=== PATIENT | male | born 1950 | race Caucasian/White ===

== ENCOUNTER → 2020-07-02 | Outpatient (CLI) | payer MEDICARE ==
[~2020-07-02] MED LIST: ARNUITY ELLIPTA INH; ASPIR 8181 MG PO; ATENOLOL50 MG PO; Anoro Ellipta INH; CITALOPRAM HBR20 MG PO; DICYCLOMINE HCL10 MG PO; DULERA 200 MCG/13 GM PO; FISH OIL300 MG PO; LISINOPRIL40 MG PO; MERREM1 GM IV; MONTELUKAST SOD10 MG PO; MULTI-VITAMIN1 EACH PO; PROAIR HFA INH8.5 GM INH; VANCOMYCIN1 GM/250 M IV; VITAMIN B-121000 MCG PO; VITAMIN C1000 MG PO
== END ==
LOC: NM 08:20
PROVIDERS: ATTEND Surgery
DX: S81.801A Unspecified open wound, right lower leg, initial encounter (principal)
CPT/HCPCS: 73590; 78315; A9503; A9521; A9570

== ENCOUNTER → 2020-07-29 | Outpatient (CLI) | payer MEDICARE, OTHER ==
[~2020-07-29] MED LIST changes: +BUPIVACAINE 0.25% 30ML SDV ONE; +LIDOCAINE 1% W/EPINEPHRINE 20 ML VIAL ONE
[2020-07-29 09:30] LABS: BASOPHILS # (AUTO) 0.1 (0.0-0.1); BASOPHILS % 1.2 % (0.0-1.0); EOSINOPHILS # (AUTO) 0.6 (0.0-0.4); HEMATOCRIT 47.8 % (38.2-49.6); HEMOGLOBIN 16.4 g/dL (14.0-18.0); LYMPHOCYTES # (AUTO) 2.2 (1.0-3.2); LYMPHOCYTES % 32.4 % (18.0-39.1); MEAN CORPUSCULAR HEMOGLOBIN 31.2 pg (28-32); MEAN CORPUSCULAR HGB CONC 34.3 g/dL (31-35); MEAN CORPUSCULAR VOLUME 90.9 fL (81-99); MONOCYTES # (AUTO) 0.7 (0.2-0.8); MONOCYTES % 9.7 % (4.4-11.3); NEUTROPHILS # (AUTO) 3.3 (2.1-6.9); NEUTROPHILS % 47.4 % (38.7-80.0); PLATELET COUNT 165 x10e3/uL (140-360); RED BLOOD COUNT 5.26 x10e6/uL (4.3-5.7)
[2020-07-29 09:55] LABS: ANION GAP 11.5 mmol/L (8-16); CALCIUM 8.8 mg/dL (8.4-10.2); CARBON DIOXIDE 26 mmol/L (22-29); CHLORIDE 97 mmol/L (98-107); GLUCOSE 136 mg/dL (74-118); POTASSIUM 4.5 mmol/L (3.5-5.1); SODIUM 130 mmol/L (136-145)
[2020-07-29 10:10] LABS: CREATININE, SERUM 0.95 mg/dL (0.72-1.25); EST GLOMERULAR FILTRATION RATE > 60 ML/MIN (60-)
[2020-07-29 10:13] LABS: BLOOD UREA NITROGEN < 5 mg/dL (7-26); BUN/CREATININE RATIO 5 (6-25)
== END ==
LOC: RAD 21:33 → OR 07-31 07:08 → EDSTATUS 07-31 10:00
PROVIDERS: ATTEND Surgery
DX: T81.89XA Other complications of procedures, not elsewhere classified, initial encounter (principal); Y84.9 Medical procedure, unspecified as the cause of abnormal reaction of the patient, or of later complication, without mention of misadventure at the time of the procedure; Z53.8 Procedure and treatment not carried out for other reasons; Z01.810 Encounter for preprocedural cardiovascular examination; Z01.812 Encounter for preprocedural laboratory examination; Z01.818 Encounter for other preprocedural examination; Z20.822 Contact with and (suspected) exposure to COVID-19
CPT/HCPCS: 36415; 71046; 80048; 85025; 93005; U0002

== ENCOUNTER → 2020-08-12 | Day surgery (SDC) | payer MEDICARE ==
[~2020-08-12] MED LIST changes: +CEFTRIAXONE SOD 1 GM VIAL ONE; +DEXAMETHASONE SOD PHOS INJ 4 MG/ML VIAL ONE; +EPHEDRINE SULFATE INJ 50 MG/ML VIAL ONE; +FENTANYL CITRATE/PF 100MCG/2 ML INJ ONE; -LIDOCAINE 1% W/EPINEPHRINE 20 ML VIAL ONE; +LIDOCAINE HCL 2% LOCAL INJ 5 ML SDV VIAL INJ ONE; +ONDANSETRON HCL INJ 2MG/ML 2ML 2 MG/ML VIAL ONE; +PROPOFOL IV EMULSION 10 MG/ML 20 ML VIAL ONE; +SEVOFLURANE INHAL SOLN 250 ML PEN BTL ONE
[2020-08-12 12:39] VITALS: BP 109/63
== END | disposition home or self-care (01) ==
LOC: OR 06:53
PROVIDERS: ATTEND Surgery
DX: S81.801A Unspecified open wound, right lower leg, initial encounter (principal); I10 Essential (primary) hypertension; I44.0 Atrioventricular block, first degree; X58.XXXA Exposure to other specified factors, initial encounter; Z01.812 Encounter for preprocedural laboratory examination; Z20.822 Contact with and (suspected) exposure to COVID-19; Z90.5 Acquired absence of kidney
CPT/HCPCS: 15738; J0696; J1100; J2001; J2405; J2704; J3010; U0002

== ENCOUNTER 2025-02-05 07:45 | Inpatient (IN) | payer MEDICARE ==
[~2025-02-05] VITALS: Ht 167.6 cm; Wt 63.5 kg
[2025-02-05] VITALS (8 sets, daily range): BP systolic 104–150; BP diastolic 74–96; PULSE 90–107; RESP 17–19; TEMP 97.6–98.2; O2SAT 94–100
[~2025-02-05 07:45] MED LIST changes: -BUPIVACAINE 0.25% 30ML SDV ONE; -CEFTRIAXONE SOD 1 GM VIAL ONE; -DEXAMETHASONE SOD PHOS INJ 4 MG/ML VIAL ONE; -EPHEDRINE SULFATE INJ 50 MG/ML VIAL ONE; -FENTANYL CITRATE/PF 100MCG/2 ML INJ ONE; -LIDOCAINE HCL 2% LOCAL INJ 5 ML SDV VIAL INJ ONE; -ONDANSETRON HCL INJ 2MG/ML 2ML 2 MG/ML VIAL ONE; -PROPOFOL IV EMULSION 10 MG/ML 20 ML VIAL ONE; -SEVOFLURANE INHAL SOLN 250 ML PEN BTL ONE
[2025-02-05] MEDS: KETOROLAC TROMETHAMINE 30 MG/ML VIAL IV STA (08:54)
[2025-02-05] MEDS: SODIUM CHLORIDE 0.9% 1000ML 1,000 ML IV ONE ×2 (08:55→13:32)
[2025-02-05 08:59] LABS: BASOPHILS % 0.3 % (0.0-1.0); EOSINOPHILS % 1.1 % (0.0-6.0); LYMPHOCYTES % 9.2 % (18.0-39.1); MONOCYTES % 8.5 % (4.4-11.3); NEUTROPHILS % 80.4 % (38.7-80.0); RED CELL DISTRIBUTION WIDTH 14.0 % (11.7-14.4)
[2025-02-05 09:19] LABS: EST GLOMERULAR FILTRATION RATE 94.0 ML/MIN (>=60)
[2025-02-05] MEDS ORDERED: IOPAMIDOL 370 MG/ML 100 ML INFUS..BTL INJ ONE (09:59)
[2025-02-05] MEDS ORDERED: NICOTINE 21 MG/EA PATCH ONE (12:13)
[2025-02-05] MEDS ORDERED: SODIUM CHLORIDE FLUSH 10 ML SYR INJ PRN (12:15)
[2025-02-05 12:22] LABS: LEUKOCYTE ESTERASE ,URINE NEGATIVE (NEGATIVE); PROTEIN,URINE DIPSTICK NEGATIVE (NEGATIVE); URINE UROBILINOGEN 0.2 mg/dL (0.2 - 1)
[2025-02-05] MEDS: NICOTINE 21 MG/EA PATCH TOP SCH (12:34)
[2025-02-05] MEDS: POLYETHYLENE GLYCOL 3350 17 GM PACK PO PRN (20:32)
[2025-02-06] MEDS: HYDROCODONE/APAP 5MG-325MG TAB PO PRN (00:26)
[2025-02-06] MEDS: ONDANSETRON HCL INJ 2MG/ML 2ML 2 MG/ML VIAL IV PRN (02:01)
[2025-02-06 03:12] VITALS: BP 121/80; PULSE 99; RESP 18; TEMP 97.5; O2SAT 96
[2025-02-06 06:13] LABS: BASOPHILS % 0.2 % (0.0-1.0); EOSINOPHILS % 1.4 % (0.0-6.0); LYMPHOCYTES % 10.5 % (18.0-39.1); MONOCYTES % 8.5 % (4.4-11.3); NEUTROPHILS % 78.8 % (38.7-80.0); RED CELL DISTRIBUTION WIDTH 14.3 % (11.7-14.4)
[2025-02-06 06:59] LABS: EST GLOMERULAR FILTRATION RATE 98.0 ML/MIN (>=60)
[2025-02-06 09:05] VITALS: BP 130/76; PULSE 105; RESP 18; TEMP 99.1; O2SAT 95
[2025-02-06] MEDS: SENNOSIDES 8.6 MG TAB PO SCH (09:19)
[2025-02-06] MEDS: DOCUSATE SODIUM 100 MG CAP PO SCH (09:19)
[2025-02-06] MEDS: BISACODYL 10 MG SUPP PR PRN (09:49)
[2025-02-06 12:00] VITALS: BP 124/93; PULSE 110; RESP 20; TEMP 99.1; O2SAT 99
[2025-02-06] MEDS ORDERED: IOPAMIDOL 370 MG/ML 100 ML INFUS..BTL INJ ONE (12:08)
[2025-02-06] MEDS: Morphine 4mg INJECTION 4 MG/ML INJ IV PRN (13:44)
[2025-02-06] MEDS: MAGNESIUM SULFATE 2GM/50ML 50 ML IV ONE (13:45)
[2025-02-06 16:11] VITALS: BP 130/84; PULSE 98; RESP 19; TEMP 98; O2SAT 96
[2025-02-06 20:00] VITALS: BP 92/74; PULSE 107; RESP 20; TEMP 98.8; TEMP 99.7; O2SAT 91
[2025-02-06 21:56] VITALS: BP 124/81; PULSE 116; RESP 18; TEMP 98.8; O2SAT 91
[2025-02-06] MEDS: ACETAMINOPHEN 325 MG TAB PO PRN (23:35)
[2025-02-07] VITALS (13 sets, daily range): BP systolic 89–129; BP diastolic 63–88; PULSE 83–116; RESP 16–20; TEMP 97.8–98.8; O2SAT 90–100
[2025-02-07 05:33] LABS: BASOPHILS % 0.3 % (0.0-1.0); EOSINOPHILS % 0.1 % (0.0-6.0); LYMPHOCYTES % 5.9 % (18.0-39.1); MONOCYTES % 8.5 % (4.4-11.3); NEUTROPHILS % 84.4 % (38.7-80.0); RED CELL DISTRIBUTION WIDTH 14.3 % (11.7-14.4); RETICULOCYTE % 1.8 % (0.8-2.2)
[2025-02-07 06:04] LABS: EST GLOMERULAR FILTRATION RATE 99.0 ML/MIN (>=60)
[2025-02-07 06:23] LABS: % IRON SATURATION 5.0 % (15-50); LACTATE DEHYDROGENASE 155.0 IU/L (125-220)
[2025-02-07] MEDS: HYDROCODONE/APAP 5MG-325MG TAB PO PRN (07:13)
[2025-02-07] MEDS ORDERED: GUAIFENESIN/CODEINE 5 ML LIQD PO PRN (08:15)
[2025-02-07 08:47] LABS: BASOPHILS % 0.2 % (0.0-1.0); EOSINOPHILS % 0.1 % (0.0-6.0); LYMPHOCYTES % 4.2 % (18.0-39.1); MONOCYTES % 7.7 % (4.4-11.3); NEUTROPHILS % 87.1 % (38.7-80.0); RED CELL DISTRIBUTION WIDTH 14.2 % (11.7-14.4)
[2025-02-07] MEDS: BUDESONIDE/FORMOTEROL 160/4.5MCG INHALER INH SCH (09:00)
[2025-02-07] MEDS ORDERED: SYMBICORT 16010.2 GM INH (09:30)
[2025-02-07] MEDS ORDERED: BROMFED DM COU118 ML PO (09:30)
[2025-02-07] MEDS ORDERED: NICODERM CQ1 EAC2 TOP (09:30)
[2025-02-07] MEDS ORDERED: AMOX TR-K CLV1 EAC2 PO (09:30)
[2025-02-07] MEDS ORDERED: KETOROLAC TROME10 MG PO (09:30)
[2025-02-07] MEDS ORDERED: VENTOLIN HFA18 GM INH (09:37)
[2025-02-07] MEDS: METHYLPREDNISOLONE SOD SUCC 125 MG/2ML VIAL IV ONE (09:52)
[2025-02-07 10:43] LABS: LYMPHOCYTES % (MANUAL) 4 % (19-48); MONOCYTES % (MANUAL) 8 % (3.4-9.0); NEUTROPHILS % (MANUAL) 88 % (40-74); PLATELET ESTIMATE ADEQUATE; PLATELET MORPHOLOGY COMMENT NORMAL; RBC MORPHOLOGY COMMENT NORMAL
[2025-02-07 12:59] LABS: INR 1.0
[2025-02-07] MEDS ORDERED: FENTANYL CITRATE/PF 100MCG/2 ML INJ ONE (13:37)
[2025-02-07] MEDS ORDERED: MIDAZOLAM HCL 2 MG/2 ML VIAL ONE (13:37)
[2025-02-07] MEDS ORDERED: SODIUM CHLORIDE 0.9% 250ML 250 ML ONE (13:37)
[2025-02-08] VITALS (7 sets, daily range): BP systolic 111–128; BP diastolic 71–91; PULSE 89–112; RESP 16–20; TEMP 97.5–98.1; O2SAT 96–100
[2025-02-08 06:11] LABS: BASOPHILS % 0.1 % (0.0-1.0); EOSINOPHILS % 0.0 % (0.0-6.0); LYMPHOCYTES % 3.2 % (18.0-39.1); MONOCYTES % 6.0 % (4.4-11.3); NEUTROPHILS % 89.8 % (38.7-80.0); RED CELL DISTRIBUTION WIDTH 14.3 % (11.7-14.4)
[2025-02-08 06:54] LABS: EST GLOMERULAR FILTRATION RATE 92.0 ML/MIN (>=60)
[2025-02-08 08:55] LABS: NEUTROPHILS % (MANUAL) 90 % (40-74)
[2025-02-08 08:56] LABS: LYMPHOCYTES % (MANUAL) 4 % (19-48); MONOCYTES % (MANUAL) 6 % (3.4-9.0); PLATELET ESTIMATE ADEQUATE; PLATELET MORPHOLOGY COMMENT NORMAL; RBC MORPHOLOGY COMMENT NORMAL
[2025-02-08] MEDS: KETOROLAC TROMETHAMINE 10 MG TAB PO PRN (09:42)
[2025-02-08] MEDS ORDERED: GADOBENATE DIMEGLUMINE 1 ML IV ONE (14:36)
[2025-02-08 22:16] LABS: HAPTOGLOBIN 277 mg/dL (34-355)
== END 2025-02-08 17:00 | disposition home or self-care (01) | DRG 477 ==
LOC: ER 08:15 → ERHOLD 12:05 → MED/SURG2 13:10 → OBSVTOIN 02-06 17:28
PROVIDERS: ADMIT Internal Medicine; ATTEND Internal Medicine
PROC: 0QB23ZX Excision of Right Pelvic Bone, Percutaneous Approach, Diagnostic (ICD-10-PCS; principal; 2025-02-07)
DX: C79.51 Secondary malignant neoplasm of bone (principal); J18.9 Pneumonia, unspecified organism; C34.11 Malignant neoplasm of upper lobe, right bronchus or lung; R04.2 Hemoptysis; C78.7 Secondary malignant neoplasm of liver and intrahepatic bile duct; N13.6 Pyonephrosis; K59.00 Constipation, unspecified; I10 Essential (primary) hypertension; F41.8 Other specified anxiety disorders; G25.0 Essential tremor; M89.58 Osteolysis, other site; R63.4 Abnormal weight loss; E83.52 Hypercalcemia; F40.228 Other natural environment type phobia; D72.829 Elevated white blood cell count, unspecified; M19.90 Unspecified osteoarthritis, unspecified site; G89.3 Neoplasm related pain (acute) (chronic); J44.9 Chronic obstructive pulmonary disease, unspecified; D63.0 Anemia in neoplastic disease; Z72.0 Tobacco use; Z90.5 Acquired absence of kidney; Z79.82 Long term (current) use of aspirin; Z68.22 Body mass index [BMI] 22.0-22.9, adult
CPT/HCPCS: 20225; 36415; 70553; 71045; 71260; 72131; 72192; 74177; 74470; 76770; 77012; 80053; 81001; 82607; 82728; 82746; 83010; 83540; 83615; 83690; 83735; 84165; 84466; 85025; 85045; 85610; 87086; 88304; 88307; 88311; 88342; 94799; 99284; G0378; J0696; J1885; J2250; J2270; J2405; J2543; J2919; J3475; J7030; J7050; Q9967